=== PATIENT | female | born 1945 | race Caucasian/White ===

== ENCOUNTER 2019-08-08 08:45 | Emergency (ER) | payer MEDICARE, OTHER ==
[~2019-08-08] VITALS: Ht 154.9 cm; Wt 59.9 kg
--- NOTE | 2019-08-08 08:46 | NUR ---
Patient came to the ER pulseless accompanied by paramedics from [facility], unable to obtained vital signs, MD RT and RN at bedside.
[2019-08-08 08:47] VITALS: BP_DIAS 0
--- NOTE | 2019-08-08 09:15 | NUR ---
called [facility] and spoke to RN optical instrument assembly supervisor on duty and reported time of of , and per RN Kuldeep Bolanos is the next of kin.
--- NOTE | 2019-08-08 09:20 | NUR ---
called next of kin per facility RN threshing department supervisor Kuldeep Bolanos [phone]
--- NOTE | 2019-08-08 09:22 | NUR ---
dr yareli pandya's office called,he will sign certificate per pedro since this is his patient
[2019-08-08 09:34] VITALS: BP_SYST 0
--- NOTE | 2019-08-08 09:34 | NUR ---
[place] [facility] [place]
== END 2019-08-08 09:30 | disposition expired ==
LOC: ER 08:56
DX: I46.9 Cardiac arrest, cause unspecified (principal); Z66 Do not resuscitate; U07.1 COVID-19; J96.10 Chronic respiratory failure, unspecified whether with hypoxia or hypercapnia; Z93.0 Tracheostomy status; Z99.11 Dependence on respirator [ventilator] status; G20 Parkinson's disease; R53.2 Functional quadriplegia; I13.0 Hypertensive heart and chronic kidney disease with heart failure and stage 1 through stage 4 chronic kidney disease, or unspecified chronic kidney disease; N18.9 Chronic kidney disease, unspecified; I50.9 Heart failure, unspecified; Q85.00 Neurofibromatosis, unspecified; Z86.711 Personal history of pulmonary embolism